=== PATIENT | male | born 1950 | race Caucasian/White ===

== ENCOUNTER → 2016-11-10 05:38 | Day surgery (SDC) | payer MEDICARE ==
[~2016-11-10] VITALS: Ht 185.4 cm; Wt 83.9 kg
[~2016-11-10 05:38] MED LIST: TYLENOL PM1 TAB PO; URINOZINC PROSTATE PO; XANAX0.5 MG PO
[2016-11-10 06:41] VITALS: Ht 185.4 cm; Wt 83.9 kg
[2016-11-10 06:56] LABS: HEMATOCRIT 44.1 % (42.0-54.0); HEMOGLOBIN 15.3 g/dL (13.5-17.5); MCH 32.6 pg (26.0-34.0); MCHC 34.7 g/dL (31.0-37.0); MEAN PLATELET VOLUME 8.5 fL (7.4-10.4); RBC 4.69 10x6/uL (4.20-6.10); RDW 12.8 % (11.5-14.5); WBC 6.2 10x3/uL (4.8-10.8)
--- NOTE | 2016-11-10 08:32 | NUR ---
PROCEDURE COMPLETED WITH PATIENT ON STRETCHER
--- NOTE | 2016-11-10 14:28 | NUR ---
1145- PT ESCORTED OUT BY VOLUNTEER AND ACCOMPANIED BY HIS .
== END | disposition home or self-care (01) ==
LOC: D.OPS 05:38 → D.PAN 08:00
PROVIDERS: Anesthesiology
DX: D12.3 Benign neoplasm of transverse colon (principal); D12.4 Benign neoplasm of descending colon; D12.5 Benign neoplasm of sigmoid colon; K63.5 Polyp of colon; Z01.812 Encounter for preprocedural laboratory examination

== ENCOUNTER 2018-02-15 06:45 | Day surgery (SDC) | payer MEDICARE, BC ==
[2018-02-13 10:45] LABS: HEMATOCRIT 41.8 % (42.0-54.0); HEMOGLOBIN 14.4 g/dL (13.5-17.5); MCH 31.5 pg (26.0-34.0); MCHC 34.4 g/dL (31.0-37.0); MCV 91.5 fL (80.0-100.0); MEAN PLATELET VOLUME 8.1 fL (7.4-10.4); RBC 4.57 10x6/uL (4.20-6.10); RDW 13.4 % (11.5-14.5); WBC 6.3 10x3/uL (4.8-10.8)
[~2018-02-15] VITALS: Ht 185.4 cm; Wt 97.7 kg
--- NOTE | ~2018-02-15 | OP ---
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 PROCEDURES: 1. Total colonoscopy to cecum. 2. Polypectomy utilizing endoscopic mucosal resection. 3. Ablation of the peripolypoid tissue with the argon plasma transition advisor utilizing the right colon setting in the forced mode. 4. Reinforcement of the resection with a row of 5 endoscopic clips. SURGEON: Lizzy Cornejo MD FINANCIAL ASSISTANCE ADVISOR: None. BLOOD LOSS: Minimal. ANESTHESIA: General. COMPLICATIONS: None. The risks, possible complications, and alternatives to the procedure were explained to the patient. He elects to proceed. The discussion specifically included, but was not limited to, bleeding requiring emergency reoperation, infection, perforation, recurrence of the polyp and the fact that the polyp could degenerate into a malignancy. ENDOSCOPIC COURSE: The patient was conveyed to the operating room electively on 02/15/2018. General anesthesia was induced by the anesthesia staff. The patient was placed in the Epps position. A digital rectal examination was performed. A colonoscope was inserted through the anus. It was easily advanced to the cecum. Upon withdrawal, I irrigated and aspirated extensively. Pullback was greater than 19-minute pullback. The prep was adequate. I identified the tattooed area and there was a recurrent polyp within the scar at the site of the tattooed lesion. I advanced a sclerotherapy needle. I performed a submucosal injection of Eleview at several sites around the polyp to get the polyp to lift. The polyp was on a fold. I advanced the endoscopic snare. I then snared the polyp at its base. Some additional cold biopsies were obtained and these were deep biopsies. I then utilized the argon plasma transition advisor with the right colon setting in the forced mode to ablate the polypoid base as well as the peripolypoid tissue. As I had to go kind of deep to remove this polyp, I reinforced this area to prevent a post-polypectomy syndrome or perforation. The reinforcement consisted of deploying a row of 5 endoscopic clips. OPERATIVE REPORT [id number] MARIA DEL CARMENDANIEL BETANCOURT I grasped the polyp with an endoscopic retrieval net and withdrew it through the rectum and anus. The patient was then extubated and conveyed to the post-anesthesia care unit where he was in stable condition. I will plan to see him in the office in 2-3 weeks. We will plan for his next colonoscopy with the argon plasma transition advisor to take place in the GI lab in 1 year. TRANSINT:[id number] Voice Confirmation ID: [id number] DOCUMENT ID: [id number] LIZZY CORNEJO MD at 1415 CC: CELINA GATICA MD and KERWIN FISCHER [id number] DICTATION DATE: 02/15/18 1240 [employer] ATTACHER: 02/15/18 1254 [facility] 02/15/18 [facility] [address] [place] [address]
[2018-02-15 07:11] VITALS: BP 143/77; Ht 185.4 cm; Wt 97.7 kg
== END 2018-02-15 14:15 | disposition home or self-care (01) ==
LOC: D.OPS 06:45 → D.PAN 08:00 → D.OPS 08:00 → D.PAN 09:00 → D.OPS 09:00
PROVIDERS: Anesthesiology
DX: D37.4 Neoplasm of uncertain behavior of colon (principal)

== ENCOUNTER 2019-05-29 06:17 | Day surgery (SDC) | payer MEDICARE, BC ==
[~2019-05-29] VITALS: Ht 185.4 cm; Wt 93.7 kg
[2019-05-29 06:51] LABS: HEMATOCRIT 43.8 % (42.0-54.0); MCH 31.7 pg (26.0-34.0); MCHC 34.2 g/dL (31.0-37.0); MCV 92.6 fL (80.0-100.0); MEAN PLATELET VOLUME 8.2 fL (7.4-10.4); RBC 4.73 10x6/uL (4.20-6.10); RDW 13.5 % (11.5-14.5); WBC 7.3 10x3/uL (4.8-10.8)
[2019-05-29] MEDS ORDERED: MULTI-DAY VITAM1 TAB PO (07:01)
[2019-05-29] MEDS ORDERED: MELATONIN 3 MG1 TAB PO (07:01)
[2019-05-29 07:06] VITALS: Ht 185.4 cm; Wt 93.7 kg
--- NOTE | 2019-05-29 12:38 | NUR ---
PT DC INSTRUCTIONS REVIEWED AT THIS TIME, PT AND FAMILY VERBALIZE UNDERSTANDING. PT IV REMOVED AT THIS TIME, INTACT, NO REDNESS OR SWELLING NOTED AT SITE.
--- NOTE | 2019-05-29 12:44 | NUR ---
PT LEAVING OPS AT THIS TIME VIA WC, NAD NOTED.
--- NOTE | 2019-05-31 16:33 | HP ---
PATIENT: DANIEL ARVIZU MEDICAL RECORD: [id number] ACCOUNT: [id number] LOCATION:[place] : 54 ADMISSION DATE: 05/29/19 PCP: KERWIN FISCHER MD HISTORY AND PHYSICAL EXAMINATION PRINCIPAL DIAGNOSIS: History of colon polyp. HISTORY OF PRESENT ILLNESS: The patient underwent a colonoscopy last year with endoscopic mucosal resection. This was a tubulovillous adenoma at 52 cm with low-grade atypia. The area was tattooed and this was a recurrent polyp. This was a recurrent polyp within a scar. Five clips were deployed for tissue reinforcement. He has had no abdominal pain. No rectal bleeding. However, he has had some hemorrhoid problems. PAST MEDICAL AND SURGICAL HISTORY: Anxiety, back surgery to L4 and L5, history of colon polyps, history finger surgery times 2. SOCIAL HISTORY: Former smoker. HOME MEDICATIONS: Xanax as well as Tylenol PM. ALLERGIES: No known drug allergies. REVIEW OF SYSTEMS: No CVA or seizures. No diabetes or thyroid problems. PHYSICAL EXAMINATION: GENERAL: The patient does not appear acutely ill. He does not appear chronically ill. VITAL SIGNS: Reviewed. EARS: External ears appear normal. EYES: Extraocular movements are intact. NECK: Trachea is midline. CHEST: No intercostal retractions. PULMONARY: Nonlabored, no stridor. IMPRESSION: History of a tubulovillous adenoma with low-grade atypia at 52 cm, which has been tattooed. PLAN: Colonoscopy with polypectomy. TRANSINT:[id number] Voice Confirmation ID: [id number] DOCUMENT ID: [id number] LIZZY CORNEJO MD at 1633 CC: CELINA GATICA MD and KERWIN FISCHER MD [id number] DICTATION DATE: 05/29/19 1117 [employer]ERE[employer] APPRENTICE: 05/29/[address] [facility] 05/29/19 [place] [id number] [place] [address]
--- NOTE | 2019-05-31 16:40 | OP ---
PATIENT NAME: DANIEL ARVIZU MEDICAL RECORD: [id number] :54 LOCATION:D.OPS ADMISSION DATE: SURGEON: LIZZY CORNEJO MD DATE OF OPERATION: 05/29/2019 PREOPERATIVE DIAGNOSES: History of a recurrent tubular adenoma with low-grade dysplasia at 52 cm. This site has been tattooed. POSTOPERATIVE DIAGNOSES: 1. History of a recurrent tubular adenoma with low-grade dysplasia at 52 cm. This site has been tattooed. Some polypoid regrowth within the scar. 2. Another sessile polyp near the hepatic flexure, 1.0 cm x 4 mm. 3. Nine small sessile polyps, which were not biopsied. PROCEDURES: 1. Total colonoscopy to cecum. 2. Hot biopsy forceps polypectomy times 1. 3. Polypectomy utilizing argon plasma reinforcing bar setter at 52 cm. 4. Ablation of nine small sessile polyps with the argon plasma reinforcing bar setter. SURGEON: Lizzy Cornejo MD CLAMP JIG ASSEMBLER: None. BLOOD LOSS: Minimal. ANESTHESIA: IV sedation. COMPLICATIONS: None. The risks, possible complications and alternatives to the procedure were explained to the patient. He elects to proceed. ENDOSCOPIC COURSE: The patient was conveyed to endoscopy suite electively on 05/29/2019. IV sedation was induced by anesthesia staff. The patient was placed in the Epps position. A digital rectal examination was performed. The polyp was symmetric without nodules and was somewhat enlarged. A colonoscope was inserted through the anus. It was easily advanced to the cecum. The prep was excellent. I slowly withdrew the endoscope. I irrigated and aspirated extensively. I dragged the folds. The pullback was greater than an 18-minute pullback. A combination of normal imaging and narrow band imaging were utilized. One hot biopsy forceps polypectomy was performed. Cold biopsies of the recurrent polyp at 52 cm were performed and then I ablated the remaining polypoid tissue with the argon plasma reinforcing bar setter utilizing the right colon setting in the forced mode. Nine small sessile polyps were ablated with the argon plasma reinforcing bar setter. I then retroflexed the scope in the rectum and then unretroflexed the scope and removed it under direct vision. I will see the patient in my office in 2-3 weeks. I will plan for his next colonoscopy to take place in 2 years. TRANSINT:[id number] Voice Confirmation ID: [id number] DOCUMENT ID: [id number] OPERATIVE REPORT [id number] DANIEL ARVIZU ROBERT MD at 1640 CC: CELINA GATICA MD and KERWIN FISCHER MD [id number] DICTATION DATE: 05/29/19 1210 GEOPHYSICAL OBSERVER: 05/29/19 1442 [facility] [place] 05/29/19 [place] [id number] [place] [id number]
== END 2019-05-29 12:44 | disposition home or self-care (01) ==
LOC: D.OPS 06:17
PROVIDERS: Anesthesiology; ATTEND Surgery
DX: K63.5 Polyp of colon (principal); Z86.010 Personal history of colon polyps